=== PATIENT | female | born 1995 | race Caucasian/White ===

== ENCOUNTER 2017-09-14 06:15 | Inpatient (IN) | payer MEDICAID ==
[2017-09-14] MEDS: LACTATED RINGERS 1,000 ML IV SCH ×2 (06:48→11:39)
[2017-09-14] MEDS ORDERED: METHYLERGONOVINE 0.2 MG/ML 1 ML AMP IM PRN (06:49)
[2017-09-14] MEDS ORDERED: LIDOCAINE 1% (PF) 10 MG/ML (30 ML SDV) SQ PRN (06:49)
[2017-09-14] MEDS ORDERED: OXYTOCIN 10 UNIT/ML 1 ML VIAL IM PRN (06:49)
[2017-09-14] MEDS ORDERED: CARBOPROST TROMETHAMINE 250 MCG/ML 1 ML AMP IM PRN (06:49)
[2017-09-14] MEDS ORDERED: TERBUTALINE 1 MG/ML VIAL SQ PRN (06:49)
[2017-09-14] MEDS ORDERED: OXYTOCIN 20 UNITS/1000 ML NS 1,000 ML IV SCH (07:00)
[2017-09-14 07:07] LABS: Basophils % (A) 1 %; CH 28.5; CHCM 32.6; Eosinophils # (A) 0.1 k/uL (0-0.7); Eosinophils % (A) 2 %; HDW 3.29; HGB 10.4 gm/dL (11.4-16.0); Hypochromasia Slight; Luc # (Auto) 0.14; Luc % (Auto) 2; Lymphocytes # (A) 1.1 k/uL (1.0-4.8); Lymphocytes % (A) 19 %; MCH 29.3 pg (25.0-35.0); MCHC 33.3 g/dL (31.0-37.0); Mean Platelet Volume 9.6; Monocytes # (A) 0.5 k/uL (0-1.0); Monocytes % (A) 9 %; Neutrophils # (A) 4.1 k/uL (1.3-7.7); Neutrophils % (A) 68 %; RBC 3.53 m/uL (3.80-5.40); RDW 14.9 % (11.5-15.5); WBC 6.1 k/uL (3.8-10.6); WBC (Perox) 6.63
[2017-09-14 07:24] VITALS: BMI 34.2
--- NOTE | 2017-09-14 07:36 | P.HPOB ---
History of Present Illness H&P Date: 09/14/17 This is a 22-year-old white female 1 para 0 EDC 09/16/2017 at 39-5/7 weeks' gestation. Patient presents with a favorable cervix for elective induction. Fetus is been active throughout the . She denies fluid leakage or vaginal bleeding. Past medical history is unremarkable. Past surgical history significant for tubes in the ears as a child. Current medications vitamins daily. ALLERGIES none known. Family history significant for diabetes in her grandmother. Social history patient is , she has never been a smoker, she is employed locally, she denies alcohol or drug use. history is significant for blood type A positive, rubella status immune. Pap smear, gonorrhea and chlamydia cultures, urine culture, HIV status , hepatitis B surface antigen, group B strep cultures all negative. One-hour Glucola 103. On exam this is a pleasant female, 5 foot 7 inches, 219 pounds, blood pressure 118/75, temperature 96.9. The general physical exam is within normal limits. The extremities reveal no edema. The chest is clear. The cervix is 3 cm dilated, 70% effaced, anterior, soft, vertex. Artificial amniorrhexis reveals clear fluid. heart rate is consistent with reactive NST. Impression: 39-5/7 weeks intrauterine , all signs reassuring, here for elective induction of labor. Plan: Close maternal and surveillance. Oxytocin per hospital protocol. Anticipate normal spontaneous vaginal delivery. Review of Systems Constitutional: Reports as per HPI Past Medical History Past Medical History: No Reported History History of Any Multi-Drug Resistant Organisms: None Reported Past Surgical History: Ear Surgery Additional Past Surgical History / Comment(s): tubes as a child Past Anesthesia/Blood Transfusion Reactions: No Reported Reaction Past Psychological History: No Psychological Hx Reported Smoking Status: Never smoker Past Alcohol Use History: Rare Past Drug Use History: None Reported Additional Drug Use History / Comment(s): no alcohol use during the - Past Family History Father Family Medical History: No Reported History Medications and Allergies Home Medications Medication Instructions Recorded Confirmed Type Pnv,Calcium 72/Iron/Folic Acid 1 tab PO DAILY 07/15/17 08/26/17 History [ Plus Tablet] Allergies Allergy/AdvReac Type Severity Reaction Status Date / Time No Known Allergies Allergy Verified 09/14/17 06:37 Exam - Vital Signs Vital signs: Intake and Output 09/13/17 09/14/17 09/14/17 22:59 06:59 14:59 Other: Weight 99.337 kg 99.337 kg Patient Weight 09/15/17 06:59 Weight 99.337 kg See dictation under HPI, please. Results Result Diagrams: 09/14/17 06:45 Abnormal Lab Results - Last 24 Hours (Table) 09/14/17 Range/Units 06:45 RBC 3.53 L (3.80-5.40) m/uL Hgb 10.4 L (11.4-16.0) gm/dL Hct 31.0 L (34.0-46.0) % Assessment and Plan Plan: Oxytocin per hospital protocol. Close maternal and surveillance. Anticipate normal spontaneous vaginal delivery. Time with Patient: Less than 30
[2017-09-14] MEDS ORDERED: BUTORPHANOL 1 MG/ML 1 ML VIAL IV PRN (09:18)
[2017-09-14] MEDS ORDERED: BUPIVACAINE (PF) 0.25% 25 ML, fentaNYL (PF) 200 MCG in SODIUM CHLORIDE 0.9% 71 ML EPIDURAL ONE (11:38)
[2017-09-14] MEDS ORDERED: ACETAMINOPHEN TAB 325 MG TAB PO PRN (14:00)
[2017-09-14] MEDS ORDERED: diphenhydrAMINE 25 MG CAP PO PRN (14:00)
[2017-09-14] MEDS ORDERED: diphenhydrAMINE ELIXIR 25 MG/10 ML CUP PO PRN (14:00)
[2017-09-14] MEDS ORDERED: LANOLIN CREAM 5 GM TUBE TOPICAL PRN (14:00)
[2017-09-14] MEDS ORDERED: diphenhydrAMINE 50 MG CAP PO PRN (14:00)
[2017-09-14] MEDS ORDERED: ZOLPIDEM 5 MG TAB PO PRN (14:00)
[2017-09-14] MEDS ORDERED: BENZOCAINE/MENTHOL SPRAY 1 GM/SPRAY AEROSOL TOPICAL PRN (14:00)
[2017-09-14] MEDS ORDERED: SIMETHICONE 80 MG CHEWABLE PO PRN (14:00)
[2017-09-14] MEDS ORDERED: HYDROCORTISONE 2.5% RECTAL CREAM 30 GM TUBE RECTAL PRN (14:00)
[2017-09-14] MEDS ORDERED: diphenhydrAMINE 50 MG/ML 1 ML VIAL IVP PRN ×2 (14:00)
[2017-09-14] MEDS ORDERED: Acetaminophen-Codeine 300-30mg TAB PO PRN (14:00)
[2017-09-14] MEDS ORDERED: WITCH HAZEL 1 EACH MED..PAD TOPICAL PRN (14:00)
--- NOTE | 2017-09-14 14:00 | P.PROBDLV ---
Vaginal Delivery Note - . Vaginal Delivery Note: This is a 22-year-old white female 1 para 0 EDC 09/16/2017 at 39-5/7 weeks' gestation. Patient presented this morning with favorable cervix for induction of labor. Blood type is A+, rubella status immune, group B strep cultures negative. Please see dictated H&P for details. Artificial amniorrhexis revealed clear fluid. Oxytocin was started and titrated per hospital protocol. Epidural was placed per her request. She became completely dilated at 1312 hrs. and began the second stage of labor at that time. Perineal body was prepped and draped in usual sterile fashion. Excellent maternal expulsive efforts were noted. Infant's head delivered occiput anterior and he restituted accordingly. There was no nuchal cord noted. The left or anterior shoulder was gently and easily delivered from underneath the pubic symphysis at which time the oropharynx, nasopharynx, and external nares are all bulb suctioned on the perineal body. Patient is officially delivered of a liveborn male infant at 1343 hours. Umbilical cord is doubly clamped and ligated, he is handed to waiting nurses for evaluation where scores of 8 and 9 at one and 5 minutes respectively are given. Placenta delivers spontaneously, it is inspected and noted to be intact with trivascular cord at 1344 hours. This time the perineal body was redraped. Inspection of cervix, vagina, perineum, periurethral and perirectal areas reveals a small second-degree midline perineal laceration. This was repaired in the usual fashion using 3-0 Vicryl suture for excellent reapproximation. Fundus is firm and in the midline , symmetric and 18 week size upon completion of delivery. Total estimated blood loss 250 mL's. Infant weighs 7 lbs. 11 oz. or 3490 g. The patient and her family are allowed to begin the bonding experience in the LDR. They're declining circumcision further son.
[2017-09-14] MEDS: IBUPROFEN 600 MG TAB PO PRN (18:23)
[2017-09-14] MEDS ORDERED: SENNOSIDES-DOCUSATE SODIUM 1 EACH TAB PO SCH (20:00)
[2017-09-14 20:44] VITALS: RESP 16
[2017-09-15] MEDS: IBUPROFEN 600 MG TAB PO PRN ×2 (01:11→09:19)
--- NOTE | 2017-09-15 08:07 | P.DS ---
Providers Date of admission: 09/14/17 06:24 Expected date of discharge: 09/15/17 Attending physician: Cyndy Jamison Primary care physician: Stated None Hospital Course: This is a 22-year-old white female 1 para 0 EDC 09/16/2017 at 39-5/7 weeks' gestation. Patient presented for induction with favorable cervix, unremarkable, group B strep cultures negative, blood type B positive, rubella status immune. Please see my dictated history and physical for details. She was admitted, artificial amniorrhexis revealed clear fluid, oxytocin was started and titrated per hospital protocol. Epidural was placed per her request. She went on to deliver a liveborn male infant with scores of 8 and 9 at one and 5 minutes respectively. There was an estimated blood loss recorded of 250 mL, a small second-degree perineal laceration easily repaired. Infant weighed 7 lbs. 11 oz. or 3490 g. Please see my dictated delivery note for details. This morning the patient is doing well. She is voiding, ambulating, and passing flatus without difficulty. Vital signs are stable and she is afebrile. Fundus is firm and in the midline, symmetric and 18 week size. Extremities are negative for edema. Breast-feeding is going well. I have given her prescription for a double electric breast pump. She is declining circumcision for her son. Patient is being discharged home today in very good condition. She will follow- up with me in the office in 6 weeks. I have reminded her no intercourse, tampons or douching. She will use [id number] ibuprofen products, Motrin, 200 mg pills, 3 every 6 hours as needed. I have asked her to call me with any fevers shakes or chills, foul smelling or copious lochia, with the passage of large blood clots, with any pain not alleviated by ibuprofen, or indeed with any concerns. will follow-up with meal cook as recommended. We have briefly discussed options for contraception and we will discuss this further in the office the 6 week visit. Patient Condition at Discharge: Good Plan - Discharge Summary New Discharge Prescriptions: No Action Pnv,Calcium 72/Iron/Folic Acid [ Plus Tablet] 1 tab PO DAILY Discharge Medication List Pnv,Calcium 72/Iron/Folic Acid [ Plus Tablet] 1 tab PO DAILY 07/15/17 [ History] Discharge Disposition: HOME SELF-CARE
[2017-09-15 09:37] VITALS: BP 116/76; PULSE 86; TEMP 97.9
== END 2017-09-15 14:20 | disposition home or self-care (01) | DRG 775 ==
LOC: 4FBP 06:24
PROVIDERS: ADMIT Obstetrics & Gynecology; ATTEND Obstetrics & Gynecology
PROC: 10E0XZZ Delivery of Products of Conception, External Approach (ICD-10-PCS; principal; 2017-09-14)
PROC: 3E033VJ Introduction of Other Hormone into Peripheral Vein, Percutaneous Approach (ICD-10-PCS; principal; 2017-09-14)
PROC: 00HU33Z Insertion of Infusion Device into Spinal Canal, Percutaneous Approach (ICD-10-PCS; principal; 2017-09-14)
PROC: 0KQM0ZZ Repair Perineum Muscle, Open Approach (ICD-10-PCS; principal; 2017-09-14)
PROC: 3E0R3BZ Introduction of Anesthetic Agent into Spinal Canal, Percutaneous Approach (ICD-10-PCS; principal; 2017-09-14)
PROC: 10907ZC Drainage of Amniotic Fluid, Therapeutic from Products of Conception, Via Natural or Artificial Opening (ICD-10-PCS; principal; 2017-09-14)
DX: O70.1 Second degree perineal laceration during delivery (principal); Z37.0 Single live birth; Z3A.39 39 weeks gestation of pregnancy
CPT/HCPCS: 85025; 88307

== ENCOUNTER → 2018-08-25 | Outpatient (CLI) | payer OTHER ==
--- NOTE | 2018-08-25 13:56 | XR ---
Right hip HISTORY: Pain in right inguinal region 2 views of the right hip, no comparisons Bone mineralization, joint spaces and alignment are maintained IMPRESSION: Normal right hip.
== END ==
LOC: RADXRMAIN 13:27
PROVIDERS: ATTEND Emergency Medicine
DX: S73.101A Unspecified sprain of right hip, initial encounter (principal)
CPT/HCPCS: 73502

== ENCOUNTER 2019-06-06 08:14 | Outpatient (CLI) | payer OTHER ==
[2019-06-06 08:52] VITALS: BP 107/70; PULSE 102; RESP 16; TEMP 98.2
--- NOTE | 2019-06-21 15:46 | P.MSEPDOC ---
Presenting Problems - Arrival Data Date of Arrival on Unit: 06/06/19 Time of Arrival on Unit: 08:30 Mode of Transport: Ambulatory - Complaint OB-Reason for Admission/Chief Complaint: Rule Out SROM Comment: pt reports possible leaking of fluid around 0645 this morning Medical History - Information : 2 Para: 1 Term: 1 : 0 Abortions: Spontaneous or Elective: 0 Number of Living Children: 1 - Gestational Age Gestational Age by KEY (wks/days): 32 Weeks and 0 Days - History Complications: Multiple Review of Systems - Review of Systems Constitutional: No problems Breast: No problems ENT: No problems Cardiovascular: No problems Respiratory: No problems Gastrointestinal: No problems Genitourinary: No problems Musculoskeletal: No problems Neurological: No problems Skin: No problems Vital Signs - Temperature Temperature: 98.2 F Temperature Source: Temporal Artery Scan - Pulse Pulse Oximetery Pulse Rate: 102 Pulse Assessment Method: Pulse Oximetry - Respirations Respiratory Rate: 16 Oxygen Delivery Method: Room Air - Blood Pressure Right Arm Blood Pressure: 107/70 Blood Pressure Mean: 82 Blood Pressure Source: Automatic Cuff Medical Screen Scoring (Post) - Cervical Exam Dilation: Exam Deferred - Uterine Contractions Frequency: N/A Duration: N/A Intensity: N/A - Maternal Vital Signs Maternal Temperature: N/A Maternal Blood Pressure: N/A Signs of Preeclampsia: N/A Maternal Respirations: N/A - Maternal Trauma Maternal Trauma: N/A - Assessment - Baby A Heart Rate: 150 Heart Rate - NICHD Category: Category I (Normal) = 0 NST: Reactive Position: N/A - Assessment - Baby B Baseline - FHR: 135 Heart Rate - NICHD Category: Category I (Normal) = 0 NST: Reactive Position: N/A Station: N/A - Total Score Total Score - Baby A: 0 Total Score - Baby B: 0 Total Score - Baby C: 0 - Post Treatment Level of Risk Post Treatment Level of Risk - Baby A: Low (0-5) Post Treatment Level of Risk - Baby B: Low (0-5) Post Treatment Level of Risk - Baby C: Low (0-5) Physician Notification (Post) - Physician Notified Physician Notified Date: 06/06/19 Physician Notified Time: 09:20 Physician/Practitioner Notified:: jerson Spoke With: niver New Order Received: Yes - Notification Comment Comment: reported pt visit, negative amnisure, reactive twin nst, vital sign wnl, no contractions or pain Disposition - Disposition OB Disposition: Discharge to home Discharge Date: 06/06/19 Discharge Time: 09:29 I agree with the RN Medical Screening Exam: Yes Risk & Benefit of care provided described in d/c instruction: Yes Diagnosis: FALSE LABOR BEFORE 37 COMPLETED WEEKS OF GEST, THIRD TRI
== END 2019-06-06 09:29 | disposition home or self-care (01) ==
LOC: FBPOP 08:14
PROVIDERS: ATTEND Obstetrics & Gynecology
DX: O47.03 False labor before 37 completed weeks of gestation, third trimester (principal); Z3A.32 32 weeks gestation of pregnancy
CPT/HCPCS: 59025; 84112; 99213

== ENCOUNTER 2019-06-29 20:30 | Outpatient (CLI) | payer OTHER ==
[2019-06-29 22:01] VITALS: RESP 16; TEMP 97.2
[2019-06-29 22:36] VITALS: BP 124/74; PULSE 93
--- NOTE | 2019-07-01 10:50 | P.MSEPDOC ---
Presenting Problems - Arrival Data Date of Arrival on Unit: 06/29/19 Time of Arrival on Unit: 20:30 Mode of Transport: Ambulatory - Complaint OB-Reason for Admission/Chief Complaint: Possible Onset of Labor Comment: Comment: Patient arrives to triage and states she has been feeling "pressure and pain". for a few days but it has increased today. Patient also states she has been leaking. fluid but thinks it may be urine. Dr. Jamison aware that patient was coming. Medical History - Information : 2 Para: 1 Term: 1 : 0 Abortions: Spontaneous or Elective: 0 Number of Living Children: 1 - Gestational Age Gestational Age by KEY (wks/days): 35 Weeks and 2 Days - History Complications: Multiple Review of Systems - Review of Systems Constitutional: No problems Breast: No problems ENT: No problems Cardiovascular: No problems Respiratory: No problems Gastrointestinal: No problems Genitourinary: No problems Musculoskeletal: No problems Neurological: No problems Skin: No problems Vital Signs - Temperature Temperature: 97.2 F Temperature Source: Temporal Artery Scan - Pulse Right Brachial Pulse Rate: 93 Pulse Assessment Method: Automatic Cuff - Respirations Respiratory Rate: 16 Oxygen Delivery Method: Room Air O2 Sat by Pulse Oximetry: 100 - Blood Pressure Right Arm Blood Pressure: 124/74 Blood Pressure Mean: 90 Blood Pressure Source: Automatic Cuff Medical Screen Scoring (Pre) - Cervical Exam Dilation: 4-7 cm = 2 Effacement: More than 50% = 2 Membranes: Intact - Uterine Contractions Frequency: N/A Duration: N/A - Maternal Vital Signs Maternal Temperature: N/A Maternal Blood Pressure: N/A Signs of Preeclampsia: N/A - Maternal Trauma Maternal Trauma: N/A - Assessment - Baby A Baseline FHR: 135 Heart Rate - NICHD Category: Category I (Normal) = 0 NST: Reactive - Assessment - Baby B Baseline FHR: 140 Heart Rate - NICHD Category: Category I (Normal) = 0 NST: Reactive - Total Score - Baby A Total Score - Baby A: 4 - Total Score - Baby B Total Score - Baby B: 4 - Total Score - Baby C Total Score - Baby C: 4 - Level of Risk - Baby A Level of Risk - Baby A: Low (0-5) - Level of Risk - Baby B Level of Risk - Baby B: Low (0-5) - Level of Risk - Baby C Level of Risk - Baby C: Low (0-5) Physician Notification (Pre) - Physician Notified Physician Notified Date: 06/29/19 Physician Notified Time: 21:15 Physician/Practitioner Notifed:: Dr. Jamison Spoke With: Dr. Jamison New Order Received: Yes - Notification Comment Comment: Comment: Corin Moss, RN spoke with Dr. Jamison on the telephone. Cervical exam of. 4/80/-2, Reactive NST for both baby A and baby B, and no contractions noted per TOCO or palpation relayed. Dr. Jamison states if patient has not made any cervical change after. one hour, she may be discharged with follow up appointment and discharge instructions.Patient verbalizes understanding. Re-check after one hour remains the same. Patient discharged home. Disposition - Disposition OB Disposition: Physician follow up in office, Discharge to home Discharge Date: 06/29/19 Discharge Time: 22:30 I agree with the RN Medical Screening Exam: Yes Risk & Benefit of care provided described in d/c instruction: Yes Diagnosis: FALSE LABOR BEFORE 37 COMPLETED WEEKS OF GEST, THIRD TRI
== END 2019-06-29 22:30 | disposition home or self-care (01) ==
LOC: FBPOP 20:30
PROVIDERS: ATTEND Obstetrics & Gynecology
DX: O47.03 False labor before 37 completed weeks of gestation, third trimester (principal); Z3A.35 35 weeks gestation of pregnancy
CPT/HCPCS: 59025; 84112; 99213

== ENCOUNTER 2019-07-12 06:00 | Inpatient (IN) | payer OTHER ==
[2019-07-12] MEDS ORDERED: CARBOPROST TROMETHAMINE 250 MCG/ML 1 ML AMP IM PRN (07:08)
[2019-07-12] MEDS ORDERED: OXYTOCIN 10 UNIT/ML 1 ML VIAL IM PRN (07:08)
[2019-07-12] MEDS ORDERED: LIDOCAINE 0.5% (PF) 5 MG/ML (50 ML SDV) SQ PRN (07:08)
[2019-07-12] MEDS ORDERED: METHYLERGONOVINE 0.2 MG/ML 1 ML AMP IM PRN (07:08)
[2019-07-12] MEDS ORDERED: TERBUTALINE 1 MG/ML VIAL SQ PRN (07:08)
[2019-07-12 07:19] VITALS: BMI 34.9
--- NOTE | 2019-07-12 07:27 | P.HPOB ---
History of Present Illness H&P Date: 07/12/19 This is a 24-year-old white female 2 para 1001 EDC 08/01/2019 at 37 and one sevenths weeks' gestation. Patient presents today with advanced cervical dilatation, known dye amniotic twins. Cervix was 6-7 cm in the office yesterday, 90% effaced, -1 station, vertex presentation. Baby's weights have been concordant. Both have been active throughout the . Past medical history is unremarkable. Past surgical history eustachian tubes in the ears as a child. Current medications vitamins daily. ALLERGIES none known. Family history significant for diabetes. Reproductive history significant for vaginal delivery 2017, 7 lbs. 11 oz. male. Social history patient is , she is never been a smoker, she denies alcohol or drug use. history is significant for blood type A+, rubella status nonimmune. VDRL testing, urine culture, hepatitis B surface antigen, gonorrhea and chlamydia cultures, group B strep cultures all negative.. On exam this is a pleasant white female, 5 foot 7 inches, 230 pounds, vital signs are stable and she is afebrile. Chest is clear in all szymanski. Extremities reveal trace edema. Vaginal exam reveals vertex presentation, 67 cm dilation, 90% effaced, -1 station. Artificial amniorrhexis reveals clear fluid. Internal scalp lead is applied. heart rate is consistent with reactive NST both a and B. Twin B is breech presentation. Impression: 37 and one sevenths weeks intrauterine , diamniotic twins, vertex breech. Advanced cervical dilatation. Rubella nonimmune. Plan: I discussed with the patient and her in detail delivery mode. They are clean to vaginal delivery. This will be done in the back under double setup with anesthesia and watch electrician present. Epidural has been requested and will be placed shortly. Continue close maternal and surveillance. Patient is aware that for baby B is breech presentation persists after delivery of a, then one attempt at version will be made. If it is unsuccessful, baby B was delivered breech. She understands the use of piper forceps as needed and the risks to baby B. She is declining option for , preferring "natural delivery". All risks and benefits have been discussed in detail and I believe the patient and her understands our discussion without further Review of Systems Constitutional: Reports as per HPI Past Medical History Past Medical History: No Reported History History of Any Multi-Drug Resistant Organisms: None Reported Past Surgical History: Ear Surgery Additional Past Surgical History / Comment(s): tubes as a child Past Anesthesia/Blood Transfusion Reactions: No Reported Reaction Past Psychological History: No Psychological Hx Reported Smoking Status: Never smoker Past Alcohol Use History: Rare Past Drug Use History: None Reported Additional Drug Use History / Comment(s): no alcohol use during the - Past Family History Father Family Medical History: No Reported History Medications and Allergies Home Medications Medication Instructions Recorded Confirmed Type Pnv,Calcium 72/Iron/Folic Acid 1 tab PO DAILY 07/15/17 06/29/19 History [ Plus Tablet] Acetaminophen [Tylenol Extra 1 - 2 tab PO DAILY PRN 06/29/19 06/29/19 History Strength] Ranitidine HCl [Zantac] 1 tab PO DAILY 06/29/19 06/29/19 History Allergies Allergy/AdvReac Type Severity Reaction Status Date / Time No Known Allergies Allergy Verified 06/29/19 20:45 Exam Vital Signs Pulse Resp BP Pulse Ox 07/12/19 07:06 109 H 18 129/83 98 Intake and Output 07/11/19 07/12/19 07/12/19 22:59 06:59 14:59 Other: Weight 101.151 kg See dictation under HPI please Assessment and Plan Assessment: 37 and one sevenths weeks diamniotic twins, vertex breech presentations. Advanced cervical dilatation, here for labor. Plan: Continue close maternal and surveillance. Plan is for delivery under double setup in the back, in the section room. Anesthesia and watch electrician will be available, along with ultrasound monitoring for second twin. Plan is for vaginal delivery of the first twin, attempted version 1 of second twin, and then potential for vaginal breech delivery and second twin. All risks and benefits have been discussed in detail. Piper forceps will be available. Epidural has been requested and anesthesia is aware for administration. Time with Patient: Greater than 30
[2019-07-12 07:34] LABS: Basophils % (A) 1 %; Eosinophils # (A) 0.2 k/uL (0-0.7); Eosinophils % (A) 2 %; HCT 29.9 % (34.0-46.0); Hypochromasia Slight; Lymphocytes # (A) 1.3 k/uL (1.0-4.8); Lymphocytes % (A) 20 %; MCH 28.4 pg (25.0-35.0); MCHC 33.6 g/dL (31.0-37.0); MCV 84.5 fL (80.0-100.0); Mean Platelet Volume 9.5; Monocytes # (A) 0.4 k/uL (0-1.0); Monocytes % (A) 6 %; Neutrophils # (A) 4.2 k/uL (1.3-7.7); Neutrophils % (A) 68 %; Platelet Count 216 k/uL (150-450); Poikilocytosis Slight; RBC 3.53 m/uL (3.80-5.40); RDW 15.7 % (11.5-15.5); WBC 6.2 k/uL (3.8-10.6)
[2019-07-12] MEDS ORDERED: SODIUM CHLORIDE 0.9% 100 ML BAG ONE (07:35)
[2019-07-12] MEDS ORDERED: ROPIVACAINE 5MG/ML 20ML VIAL ONE (07:35)
[2019-07-12] MEDS ORDERED: fentaNYL (PF) 50 MCG/ML 5 ML AMP ONE (07:35)
[2019-07-12] MEDS: LACTATED RINGERS 1,000 ML IV SCH ×2 (08:26→08:29)
[2019-07-12] MEDS ORDERED: OXYTOCIN 30 UNITS/500 ML NS 30 UNIT in SALINE 1 500ML.BAG IV SCH (08:30)
[2019-07-12] MEDS ORDERED: HYDROCORTISONE 2.5% RECTAL CREAM 30 GM TUBE RECTAL PRN (10:17)
[2019-07-12] MEDS ORDERED: ZOLPIDEM 5 MG TAB PO PRN (10:17)
[2019-07-12] MEDS ORDERED: MEASLES-MUMPS-RUBELLA VACC/PF 12,500 UNIT/0.5 ML VIAL SQ ONE (10:17)
[2019-07-12] MEDS ORDERED: diphenhydrAMINE 25 MG CAP PO PRN (10:17)
[2019-07-12] MEDS ORDERED: diphenhydrAMINE 50 MG/ML 1 ML VIAL IVP PRN ×2 (10:17)
[2019-07-12] MEDS ORDERED: LANOLIN CREAM 5 GM TUBE TOPICAL PRN (10:17)
[2019-07-12] MEDS ORDERED: diphenhydrAMINE 50 MG CAP PO PRN (10:17)
[2019-07-12] MEDS ORDERED: BENZOCAINE/MENTHOL SPRAY 1 GM/SPRAY AEROSOL TOPICAL PRN (10:17)
[2019-07-12] MEDS ORDERED: WITCH HAZEL 1 EACH MED..PAD TOPICAL PRN (10:17)
[2019-07-12] MEDS ORDERED: SIMETHICONE 80 MG CHEWABLE PO PRN (10:17)
--- NOTE | 2019-07-12 10:17 | P.PROBDLV ---
Vaginal Delivery Note - . Vaginal Delivery Note: This is a 24-year-old white female 2 per 1001 EDC 08/01/2019 at 37 and one sevenths weeks' gestation. Patient has a known twin gestation, and was in the office yesterday noted to be 6 cm dilated, 90% effaced, -1 station. Vertex presentation of the presenting twin was noted, breech presentation of the second twin. is essentially unremarkable, group B strep cultures negative, blood type A+, rubella status nonimmune. Please see dictated history and physical for details. On admission patient was 7-8 cm dilated with vertex presentation. Artificial amniorrhexis at 0706 hrs. revealed clear fluid. Oxytocin was started and titrated per hospital protocol, internal scalp was placed on the presenting twin. At all times heart tones were reassuring. Epidural was placed per her request. Patient continued to labor and was judged to be completely dilated at 0940 hours. At this time she was taken back to the operating room for a double setup delivery. Anesthesia staff present, diet supervisor present, personnel and payroll technician as well. Patient was positioned on the delivery table and the perineal body was prepped and draped in usual sterile fashion. With excellent maternal expulsive efforts infant's head delivered occiput anterior. There was no nuchal cord noted. Patient swiftly deliver the first baby at 0951 hours. Umbilical cord was doubly clamped and ligated, he was handed to waiting pediatricians for evaluation where scores of 9 and 9 at one and 5 minutes respectively were given. He weighed 5 lbs. 15 oz. or 2680 g. Placenta delivered spontaneously at 0953 hours, it was sent to pathology for evaluation. During the delivery of the male fetus, the female fetus was monitored per personnel and payroll technician. heart rate remained in the 140s to 150s baseline. The patient had a strong urge to push and therefore was encouraged to do so. The second twin presented in a double footling breech, in the amniotic sac. The patient was allowed to push the sac into the vagina when both feet and both legs delivered. At the level of the hips of the second twin, spontaneous amniorrhexis occurred. Clear fluid was noted. The hips were rotated to sacrum anterior. The trunk was delivered easily, the upper extremities were delivered by 180 over rotation and flexion at the elbows. My right finger was used and the fetus's mouth and the head was delivered in a flexed position. Official time of delivery 0954 hours. There was a nuchal cord 3 that was reduced. Placenta delivered spontaneously at the same time. The umbilical cord was doubly clamped and ligated, she was handed to waiting diet supervisor for evaluatio n where scores of 8 and 9 at one and 5 minutes respectively were given. The female infant weighed 4 lbs. 13 oz. or 2180 g. The uterus is then massaged. Careful inspection of the cervix, vagina, perineum, periurethral, and perirectal areas revealed a very small first-degree midline perineal laceration. This was repaired in the usual fashion using 3-0 Vicryl suture with a single [id number]. Estimated blood loss totally 300 mL's. Fundus is firm and in the midline, symmetric and 18 week size upon completion of delivery. Patient and her family were allowed to begin the bonding experience in the LDR. Patient and her are declining option for circumcision further son.
[2019-07-12] MEDS ORDERED: OXYTOCIN 20 UNITS/1000 ML NS 1,000 ML IV SCH (10:30)
--- NOTE | 2019-07-12 10:35 | US ---
EXAMINATION TYPE: US OB limited DATE OF EXAM: 07/12/2019 COMPARISON: NONE CLINICAL HISTORY: Twin breech . Twin B position check during vaginal delivery EXAM PERFORMED: Transabdominal (TA) GESTATIONAL AGE / DATING No growth performed on today?s study per ordering physician SURVEY Baby B PRESENTATION: Breech HEART RATE: 145 bpm RHYTHM: Normal IMPRESSION: The fetus identified is twin B was evaluated and is in the breech presentation.
[2019-07-12] MEDS: IBUPROFEN 600 MG TAB PO PRN ×2 (11:39→19:40)
[2019-07-12] MEDS: SENNOSIDES-DOCUSATE SODIUM 1 EACH TAB PO SCH (19:41)
[2019-07-12] MEDS: ACETAMINOPHEN TAB 325 MG TAB PO PRN (22:18)
[2019-07-13] MEDS: IBUPROFEN 600 MG TAB PO PRN ×4 (03:21→23:33)
[2019-07-13 07:00] LABS: Basophils % (A) 0 %; Eosinophils # (A) 0.2 k/uL (0-0.7); Eosinophils % (A) 3 %; HCT 25.9 % (34.0-46.0); Hypochromasia Slight; Lymphocytes # (A) 1.1 k/uL (1.0-4.8); Lymphocytes % (A) 18 %; MCH 26.7 pg (25.0-35.0); MCHC 31.2 g/dL (31.0-37.0); MCV 85.5 fL (80.0-100.0); Monocytes # (A) 0.3 k/uL (0-1.0); Monocytes % (A) 6 %; Neutrophils % (A) 70 %; Platelet Count 143 k/uL (150-450); Poikilocytosis Slight; RBC 3.03 m/uL (3.80-5.40); RDW 15.7 % (11.5-15.5); WBC 5.8 k/uL (3.8-10.6)
[2019-07-13 07:07] LABS: HGB 8.1 gm/dL (11.4-16.0)
--- NOTE | 2019-07-13 07:49 | P.PN ---
Subjective Progress Note Date: 07/13/19 Principal diagnosis: day #1 Slept well. Minimal to moderate lochia rubra. Breast-feeding without issue. No complaints Objective - Vital Signs Vital signs: Vital Signs Temp 97.9 F 07/13/19 00:00 Pulse 76 07/13/19 00:00 Resp 16 07/13/19 00:00 BP 110/73 07/13/19 00:00 Pulse Ox 100 07/12/19 20:00 Intake & Output 07/12/19 07/13/19 07/13/19 18:59 06:59 18:59 Output Total 900 Balance -900 Weight 101.151 kg Output: Estimated Blood Loss 900 Other: # Voids 1 - Constitutional General appearance: Present: average body habitus, cooperative - EENT Eyes: Present: PERRLA ENT: Present: hearing grossly normal - Neck Neck: Present: normal ROM Thyroid: bilateral: normal size - Respiratory Respiratory: bilateral: CTA - Cardiovascular Rhythm: regular - Gastrointestinal Gastrointestinal Comment(s): Fundus firm, midline, symmetric, 18 week size. General gastrointestinal: Present: normal bowel sounds - Neurologic Neurologic: Present: CNII-XII intact - Musculoskeletal Musculoskeletal: Present: gait normal, strength equal bilaterally - Psychiatric Psychiatric: Present: A&O x's 3, appropriate affect, intact judgment & insight - Labs CBC & Chem 7: 07/13/19 06:44 Labs: Abnormal Lab Results - Last 24 Hours (Table) 07/13/19 Range/Units 06:44 RBC 3.03 L (3.80-5.40) m/uL Hgb 8.1 L D (11.4-16.0) gm/dL Hct 25.9 L (34.0-46.0) % RDW 15.7 H (11.5-15.5) % Plt Count 143 L (150-450) k/uL Assessment and Plan Assessment: Doing well day #1. Plan: Continue care. Preschool Teacher'S Assistant is electing to monitor the infant's for an additional period of time, therefore discharge will likely be tomorrow. Patient is declining circumcision for her twin son. Time with Patient: Less than 30
[2019-07-13] MEDS: SENNOSIDES-DOCUSATE SODIUM 1 EACH TAB PO SCH ×2 (08:00→22:37)
[2019-07-13] MEDS: ACETAMINOPHEN TAB 325 MG TAB PO PRN (12:34)
[2019-07-14 00:10] VITALS: RESP 16
[2019-07-14] MEDS: IBUPROFEN 600 MG TAB PO PRN (07:08)
--- NOTE | 2019-07-14 08:26 | P.DS ---
Providers Date of admission: 07/12/19 06:40 Expected date of discharge: 07/14/19 Attending physician: Cyndy Jamison Primary care physician: Stated None Hospital Course: This is a 24 rolled white female 2 para 1001 EDC 08/01/2019 at 37 and one sevenths weeks' gestation. Patient presented with known diamniotic twin gestation, with advanced cervical dilatation noted in the office the day before. Patient was noted to be 6-7 cm dilated in the office with vertex presentation, decision was made to proceed with delivery. is remarkable for rubella status nonimmune, blood type A+, group B strep cultures negative. Please see my dictated history and physical for details. Patient was admitted, artificial amniorrhexis revealed clear fluid. She requested and received an epidural. Oxytocin augmentation was started, only low doses were needed. She was taken to the back for delivery, under double setup with anesthesia and pediatricians present. She gave to a liveborn baby A, male infant, vertex, scores 9 and 9. He weighed 5 lbs. 15 oz. or 2680 g. She delivered the second baby girl, breech presentation, with a nuchal cord 3. Her daughter weighed 4 lbs. 13 oz. or 2180 g. She had scores of 8 and 9 at one and 5 minutes respectively. Total estimated blood loss 300 mL's. A small first-degree perineal laceration was easily repaired. Please see my dictated delivery note for details. This morning the patient and her babies are both doing very well. She is declining circumcision for her son. The patient is voiding, ambulating, passing flatus without difficulty. Vital signs are stable and she has remained afebrile. Breasts are not engorged. Breast-feeding is going well. Fundus is firm, midline, symmetric, 18 week size. Extremities are negative for edema. Patient is judged to be in very good condition for discharge home. She will follow-up in the office with me in 6 weeks. I have reminded her no intercourse, tampons or douching. She will use [id number] Advil or Aleve, or Motrin as needed for pain. She will continue taking her vitamin daily. She will call with any breast issues, with any fevers shakes or chills, with any foul smelling or copious lochia, with any pain not alleviated by [id number] products, or indeed with any concerns. We have briefly discussed options for contraception and we will discuss this further in the office. Patient Condition at Discharge: Good Plan - Discharge Summary Discharge Rx Participant: No New Discharge Prescriptions: No Action Pnv,Calcium 72/Iron/Folic Acid [ Plus Tablet] 1 tab PO DAILY Ranitidine HCl [Zantac] 1 tab PO DAILY Acetaminophen [Tylenol Extra Strength] 1 - 2 tab PO DAILY PRN PRN Reason: Pain Discharge Medication List Pnv,Calcium 72/Iron/Folic Acid [ Plus Tablet] 1 tab PO DAILY 07/15/17 [History] Acetaminophen [Tylenol Extra Strength] 1 - 2 tab PO DAILY PRN 06/29/19 [History] Ranitidine HCl [Zantac] 1 tab PO DAILY 06/29/19 [History] Follow up Appointment(s)/Referral(s): Cyndy Jamison MD [STAFF PHYSICIAN] - 6 Weeks Discharge Disposition: HOME SELF-CARE
[2019-07-14] MEDS: SENNOSIDES-DOCUSATE SODIUM 1 EACH TAB PO SCH (09:56)
[2019-07-14 10:04] VITALS: BP 108/68; PULSE 73; TEMP 97.3
== END 2019-07-14 12:00 | disposition home or self-care (01) | DRG 807 ==
LOC: 4FBP 06:40
PROVIDERS: ADMIT Obstetrics & Gynecology; ATTEND Obstetrics & Gynecology
PROC: 10E0XZZ Delivery of Products of Conception, External Approach (ICD-10-PCS; principal; 2019-07-12)
PROC: 10907ZC Drainage of Amniotic Fluid, Therapeutic from Products of Conception, Via Natural or Artificial Opening (ICD-10-PCS; 2019-07-12)
PROC: 0HQ9XZZ Repair Perineum Skin, External Approach (ICD-10-PCS; 2019-07-12)
PROC: 00HU33Z Insertion of Infusion Device into Spinal Canal, Percutaneous Approach (ICD-10-PCS; 2019-07-12)
PROC: 3E0R3BZ Introduction of Anesthetic Agent into Spinal Canal, Percutaneous Approach (ICD-10-PCS; 2019-07-12)
DX: O30.043 Twin pregnancy, dichorionic/diamniotic, third trimester (principal); Z37.2 Twins, both liveborn; O32.8XX2 Maternal care for other malpresentation of fetus, fetus 2; O69.81X2 Labor and delivery complicated by cord around neck, without compression, fetus 2; O70.0 First degree perineal laceration during delivery; Z3A.37 37 weeks gestation of pregnancy; Z83.3 Family history of diabetes mellitus
CPT/HCPCS: 76815; 85025; 86850; 86870; 86880; 86900; 86901; 86902; 88307; 90471; 90707

== ENCOUNTER 2020-12-12 18:51 | Inpatient (IN) | payer OTHER ==
[2020-12-12 19:54] LABS: Basophils # (A) 0.1 k/uL (0-0.2); Basophils % (A) 1 %; Eosinophils # (A) 0.2 k/uL (0-0.7); Eosinophils % (A) 2 %; HCT 42.4 % (34.0-46.0); Lymphocytes # (A) 0.8 k/uL (1.0-4.8); Lymphocytes % (A) 9 %; MCH 28.3 pg (25.0-35.0); MCHC 33.1 g/dL (31.0-37.0); MCV 85.6 fL (80.0-100.0); Mean Platelet Volume 9.1; Monocytes # (A) 0.3 k/uL (0-1.0); Monocytes % (A) 3 %; Neutrophils # (A) 7.2 k/uL (1.3-7.7); Neutrophils % (A) 84 %; Platelet Count 201 k/uL (150-450); RBC 4.96 m/uL (3.80-5.40); RDW 12.8 % (11.5-15.5); WBC 8.6 k/uL (3.8-10.6)
[2020-12-12 20:05] LABS: Albumin 4.5 g/dL (3.5-5.0); Calcium 9.6 mg/dL (8.4-10.2); Potassium 3.9 mmol/L (3.5-5.1); Total Bilirubin 1.1 mg/dL (0.2-1.3); Total Protein 7.7 g/dL (6.3-8.2)
[2020-12-12 20:49] LABS: Appearance,Urine Cloudy (Clear); Bilirubin,Urine Negative (Negative); Blood,Urine Negative (Negative); Color,Urine Yellow; Glucose,Urine (UA) Negative (Negative); Ketones,Urine Negative (Negative); Leukocyte Esterase,Urine Moderate (Negative); Mucus,Urine Few /hpf; Nitrite,Urine Negative (Negative); PH, Urine 5.5 (5.0-8.0); Protein,Urine Trace (Negative); RBC,Urine 2 /hpf (0-5); Specific Gravity,Urine 1.017 (1.001-1.035); Squamous Epithelial Cell,Urine 8 /hpf (0-4); Urobilinogen,Urine <2.0 mg/dL (<2.0); WBC,Urine 1 /hpf (0-5)
--- NOTE | 2020-12-12 21:13 | ED ---
Abdominal Pain HPI - General Chief Complaint: Abdominal Pain Stated Complaint: Abd pain Time Seen by Provider: 12/12/20 19:05 Source: patient Mode of arrival: ambulatory Limitations: no limitations - History of Present Illness Initial Comments: Patient is a 25-year-old previously healthy female who presents to the emergency department with reported epigastric abdominal pain. States that it started earlier this evening. She had eaten pizza and breadsticks for dinner when the pain came on. Reports that there is no radiation. Had some nausea without vomiting. Went to [facility] who gave her a dose of Toradol. States that she had significant reduction in the pain. Denies any chest pain or shortness of breath. No changes in her bowel or bladder habits. No previous abdominal surgeries. No alcohol use. No other alleviating, precipitating or modifying factors - Related Data Home Medications Medication Instructions Recorded Confirmed medroxyPROGESTERone [Depo-Provera] 150 mg SQ Q84D 12/12/20 12/12/20 Previous Rx's Medication Instructions Recorded oxyCODONE HCL [OxyIR] 5 mg PO Q6H PRN 3 Days #6 tab 12/14/20 Allergies Allergy/AdvReac Type Severity Reaction Status Date / Time No Known Allergies Allergy Verified 12/12/20 22:53 Review of Systems ROS Statement: Those systems with pertinent positive or pertinent negative responses have been documented in the HPI. ROS Other: All systems not noted in ROS Statement are negative. Past Medical History Past Medical History: No Reported History History of Any Multi-Drug Resistant Organisms: None Reported Past Surgical History: Ear Surgery Additional Past Surgical History / Comment(s): tubes as a child Past Anesthesia/Blood Transfusion Reactions: No Reported Reaction Past Psychological History: No Psychological Hx Reported Smoking Status: Never smoker Past Alcohol Use History: Rare Past Drug Use History: None Reported - Past Family History Father Family Medical History: No Reported History General Exam Limitations: no limitations General appearance: alert, in no apparent distress Head exam: Present: atraumatic, normocephalic, normal inspection Eye exam: Present: normal appearance, PERRL, EOMI. Absent: scleral icterus, conjunctival injection, periorbital swelling ENT exam: Present: normal exam, mucous membranes moist Neck exam: Present: normal inspection. Absent: tenderness, meningismus, lymphadenopathy Respiratory exam: Present: normal lung sounds bilaterally. Absent: respiratory distress, wheezes, rales, rhonchi, stridor Cardiovascular Exam: Present: regular rate, normal rhythm, normal heart sounds. Absent: systolic murmur, diastolic murmur, rubs, gallop, clicks GI/Abdominal exam: Present: soft, tenderness (epigastric pain), normal bowel sounds. Absent: distended, guarding, rebound, rigid Extremities exam: Present: normal inspection, full ROM, normal capillary refill. Absent: tenderness, pedal edema, joint swelling, calf tenderness Back exam: Present: normal inspection Neurological exam: Present: alert, oriented X3, CN II-XII intact Psychiatric exam: Present: normal affect, normal mood Skin exam: Present: warm, dry, intact, normal color. Absent: rash Course Vital Signs 12/12/20 12/12/20 19:04 23:05 Temperature 98.2 F Pulse Rate 80 81 Respiratory 18 16 Rate Blood Pressure 117/84 121/78 O2 Sat by Pulse 100 99 Oximetry Medical Decision Making - Medical Decision Making Upon arrival patient is placed into room 19. A thorough history and physical exam was performed. IV is established. Laboratory studies are conducted an ultrasound is performed. Laboratory studies were reviewed and demonstrated an elevated AST and LT. Lipase is 1915. Ultrasound demonstrates that the patient has gallstones with one in the neck. Common bile duct is not entirely visualized. I discussed results with Dr. Andrew. Did recommend admission for possible choledocholithiasis and gallstone pancreatitis. Patient will be admitted to his service. She agreed to the treatment plan and is awaiting a bed - Lab Data Result diagrams: 12/14/20 04:12 12/14/20 04:12 Lab Results 12/12/20 12/12/20 12/12/20 Range/Units 19:45 19:45 19:45 WBC 8.6 (3.8-10.6) k/uL RBC 4.96 (3.80-5.40) m/uL Hgb 14.0 (11.4-16.0) gm/dL Hct 42.4 (34.0-46.0) % MCV 85.6 (80.0-100.0) fL MCH 28.3 (25.0-35.0) pg MCHC 33.1 (31.0-37.0) g/dL RDW 12.8 (11.5-15.5) % Plt Count 201 (150-450) k/uL MPV 9.1 Neutrophils % 84 % Lymphocytes % 9 % Monocytes % 3 % Eosinophils % 2 % Basophils % 1 % Neutrophils # 7.2 (1.3-7.7) k/uL Lymphocytes # 0.8 L (1.0-4.8) k/uL Monocytes # 0.3 (0-1.0) k/uL Eosinophils # 0.2 (0-0.7) k/uL Basophils # 0.1 (0-0.2) k/uL Sodium 138 (137-145) mmol/L Potassium 3.9 (3.5-5.1) mmol/L Chloride 104 (98-107) mmol/L Carbon Dioxide 24 (22-30) mmol/L Anion Gap 10 mmol/L BUN 11 (7-17) mg/dL Creatinine 1.01 (0.52-1.04) mg/dL Est GFR (CKD-EPI)AfAm 88 (>60 ml/min/1.73 sqM) Est GFR (CKD-EPI)NonAf 77 (>60 ml/min/1.73 sqM) Glucose 123 H (74-99) mg/dL Plasma Lactic Acid Jeff 0.8 (0.7-2.0) mmol/L Calcium 9.6 (8.4-10.2) mg/dL Total Bilirubin 1.1 (0.2-1.3) mg/dL AST 65 H (14-36) U/L ALT 39 H (4-34) U/L Alkaline Phosphatase 110 (38-126) U/L Total Protein 7.7 (6.3-8.2) g/dL Albumin 4.5 (3.5-5.0) g/dL Lipase 915 H (23-300) U/L Urine Color Urine Appearance (Clear) Urine pH (5.0-8.0) Ur Specific Weed (1.001-1.035) Urine Protein (Negative) Urine Glucose (UA) (Negative) Urine Ketones (Negative) Urine Blood (Negative) Urine Nitrite (Negative) Urine Bilirubin (Negative) Urine Urobilinogen (<2.0) mg/dL Ur Leukocyte Esterase (Negative) Urine RBC (0-5) /hpf Urine WBC (0-5) /hpf Ur Squamous Epith Cells (0-4) /hpf Urine Mucus (None) /hpf Urine HCG, Qual (Not Detectd) 12/12/20 12/12/20 Range/Units 20:34 20:34 WBC (3.8-10.6) k/uL RBC (3.80-5.40) m/uL Hgb (11.4-16.0) gm/dL Hct (34.0-46.0) % MCV (80.0-100.0) fL MCH (25.0-35.0) pg MCHC (31.0-37.0) g/dL RDW (11.5-15.5) % Plt Count (150-450) k/uL MPV Neutrophils % % Lymphocytes % % Monocytes % % Eosinophils % % Basophils % % Neutrophils # (1.3-7.7) k/uL Lymphocytes # (1.0-4.8) k/uL Monocytes # (0-1.0) k/uL Eosinophils # (0-0.7) k/uL Basophils # (0-0.2) k/uL Sodium (137-145) mmol/L Potassium (3.5-5.1) mmol/L Chloride (98-107) mmol/L Carbon Dioxide (22-30) mmol/L Anion Gap mmol/L BUN (7-17) mg/dL Creatinine (0.52-1.04) mg/dL Est GFR (CKD-EPI)AfAm (>60 ml/min/1.73 sqM) Est GFR (CKD-EPI)NonAf (>60 ml/min/1.73 sqM) Glucose (74-99) mg/dL Plasma Lactic Acid Jeff (0.7-2.0) mmol/L Calcium (8.4-10.2) mg/dL Total Bilirubin (0.2-1.3) mg/dL AST (14-36) U/L ALT (4-34) U/L Alkaline Phosphatase (38-126) U/L Total Protein (6.3-8.2) g/dL Albumin (3.5-5.0) g/dL Lipase (23-300) U/L Urine Color Yellow Urine Appearance Cloudy H (Clear) Urine pH 5.5 (5.0-8.0) Ur Specific Weed 1.017 (1.001-1.035) Urine Protein Trace H (Negative) Urine Glucose (UA) Negative (Negative) Urine Ketones Negative (Negative) Urine Blood Negative (Negative) Urine Nitrite Negative (Negative) Urine Bilirubin Negative (Negative) Urine Urobilinogen <2.0 (<2.0) mg/dL Ur Leukocyte Esterase Moderate H (Negative) Urine RBC 2 (0-5) /hpf Urine WBC 1 (0-5) /hpf Ur Squamous Epith Cells 8 H (0-4) /hpf Urine Mucus Few H (None) /hpf Urine HCG, Qual Not Detected (Not Detectd) - EKG Data EKG Comments: EKG demonstrates normal sinus rhythm with a ventricular rate of 79. UT interval 136. QRS 78. QTC of 428. No acute ST segment elevations or depressions Disposition Clinical Impression: Epigastric pain, Pancreatitis, Elevated liver enzymes, Cholelithiasis Disposition: ADMITTED IP TO THIS [facility] Condition: Stable Is patient prescribed a controlled substance at d/c from ED?: No Decision to Admit Reason: Admit from EC Decision Date: 12/12/20 Decision Time: 22:22
--- NOTE | 2020-12-12 22:01 | US ---
EXAMINATION TYPE: US gallbladder DATE OF EXAM: 12/12/2020 COMPARISON: NONE CLINICAL HISTORY: RUQ pain x 1 month, worse today. EXAM MEASUREMENTS: Liver Length: 14.7 cm Gallbladder Wall: 0.3 cm CBD: Not visualized; but not dilated. Right Kidney: 9.2 x 4.4 x 3.7 cm Pancreas: Limited visibility of tail. Liver: Appears to have a slightly increased echogenicity. Gallbladder: Internal echoes seen. Hyperechoic area seen in neck measuring 0.5 x 0.7 x 0.7 cm, likel y cholelithiasis occupying approximately 5% of the gallbladder lumen. Evidence for sonographic Murp hy's sign: No CBD: Not visualized. Right Kidney: No hydronephrosis or masses seen Study limitation: Limited visibility due to overlying bowel gas and patient body habitus. IMPRESSION: 1. No definite acute sonographic process. 2. Cholelithiasis noted.
[2020-12-12] MEDS ORDERED: NALOXONE 0.4 MG/ML 1 ML VIAL IV PRN (22:23)
[2020-12-12] MEDS ORDERED: ONDANSETRON 4 MG/2 ML VIAL IVP PRN (22:23)
[2020-12-12] MEDS: SODIUM CHLORIDE 0.9% 1,000 ML IV SCH (23:27)
[2020-12-13 07:40] LABS: Basophils % (A) 1 %; Eosinophils # (A) 0.2 k/uL (0-0.7); Eosinophils % (A) 4 %; HCT 38.9 % (34.0-46.0); HGB 13.1 gm/dL (11.4-16.0); Lymphocytes # (A) 1.1 k/uL (1.0-4.8); Lymphocytes % (A) 26 %; MCH 29.2 pg (25.0-35.0); MCHC 33.7 g/dL (31.0-37.0); MCV 86.8 fL (80.0-100.0); Mean Platelet Volume 9.3; Monocytes # (A) 0.3 k/uL (0-1.0); Monocytes % (A) 7 %; Neutrophils # (A) 2.6 k/uL (1.3-7.7); Neutrophils % (A) 61 %; Platelet Count 164 k/uL (150-450); RBC 4.49 m/uL (3.80-5.40); RDW 12.6 % (11.5-15.5); WBC 4.3 k/uL (3.8-10.6)
[2020-12-13 07:50] LABS: African American GFR (CKD) 86 (>60 ml/min/1.73 sqM); Anion Gap 6 mmol/L; Blood Urea Nitrogen 11 mg/dL (7-17); Calcium 9.1 mg/dL (8.4-10.2); Carbon Dioxide 21 mmol/L (22-30); Chloride 110 mmol/L (98-107); Glucose 99 mg/dL (74-99); Lipase 133 U/L (23-300); Non-African American GFR(CKD) 75 (>60 ml/min/1.73 sqM); Sodium 137 mmol/L (137-145)
[2020-12-13] MEDS: SODIUM CHLORIDE 0.9% 1,000 ML IV SCH ×2 (08:26→20:31)
--- NOTE | 2020-12-13 09:11 | P.GSHP ---
History of Present Illness H&P Date: 12/13/20 Chief Complaint: Gallstone pancreatitis 25-year-old female comes to the ER with complaints of abdominal pain. For the last 2 months she has had intermittent pain usually once per week. Episodes last typically around 15 minutes or so. Yesterday the pain began in the aftern oon/evening and was not improving. She went to urgent care and then was sent to the hospital for evaluation. Patient describes the pain as being epigastric and right upper quadrant with radiation to the back. Some nausea without vomiting. Labs showed increased liver enzymes and elevated lipase. Ultrasound showed numerous gallstones. The patient says her pain has resolved. This morning her lipase has normalized. Liver enzymes currently pending. Denies any change in the color of her skin urine or stool. No alcohol use. - Review of Systems Comment: The patient denies any acute changes in vision or hearing, no dysphagia or odynophagia, no chest pain or shortness of breath, no dysuria or hematuria, no headache, no runny nose, no rectal bleeding or melena, no unexplained weight loss Past Medical History Past Medical History: No Reported History History of Any Multi-Drug Resistant Organisms: None Reported Past Surgical History: Ear Surgery Additional Past Surgical History / Comment(s): tubes as a child Past Anesthesia/Blood Transfusion Reactions: No Reported Reaction Past Psychological History: No Psychological Hx Reported Smoking Status: Never smoker Past Alcohol Use History: Rare Past Drug Use History: None Reported Additional Drug Use History / Comment(s): . - Past Family History Father Family Medical History: No Reported History Medications and Allergies Home Medications Medication Instructions Recorded Confirmed Type medroxyPROGESTERone [Depo-Provera] 150 mg SQ Q84D 12/12/20 12/12/20 History Allergies Allergy/AdvReac Type Severity Reaction Status Date / Time No Known Allergies Allergy Verified 12/12/20 22:53 Surgical - Exam Vital Signs Temp Pulse Resp BP Pulse Ox 98.2 F 80 18 117/84 100 12/12/20 19:04 12/12/20 19:04 12/12/20 19:04 12/12/20 19:04 12/12/20 19:04 Physical exam: General: Well-developed, well-nourished HEENT: Normocephalic, sclerae nonicteric Abdomen: Mild right upper quadrant tenderness, nondistended Extremities: No edema Neuro: Alert and oriented Results - Labs 12/13/20 07:23 12/13/20 07:23 Abnormal Lab Results - Last 24 Hours (Table) 12/12/20 12/12/20 12/12/20 Range/Units 19:45 19:45 20:34 Lymphocytes # 0.8 L (1.0-4.8) k/uL Chloride (98-107) mmol/L Carbon Dioxide (22-30) mmol/L Glucose 123 H (74-99) mg/dL AST 65 H (14-36) U/L ALT 39 H (4-34) U/L Lipase 915 H (23-300) U/L Urine Appearance Cloudy H (Clear) Urine Protein Trace H (Negative) Ur Leukocyte Esterase Moderate H (Negative) Ur Squamous Epith Cells 8 H (0-4) /hpf Urine Mucus Few H (None) /hpf 12/13/20 Range/Units 07:23 Lymphocytes # (1.0-4.8) k/uL Chloride 110 H (98-107) mmol/L Carbon Dioxide 21 L (22-30) mmol/L Glucose (74-99) mg/dL AST (14-36) U/L ALT (4-34) U/L Lipase (23-300) U/L Urine Appearance (Clear) Urine Protein (Negative) Ur Leukocyte Esterase (Negative) Ur Squamous Epith Cells (0-4) /hpf Urine Mucus (None) /hpf Diabetes panel 12/12/20 12/13/20 Range/Units 19:45 07:23 Sodium 138 137 (137-145) mmol/L Potassium 3.9 4.0 (3.5-5.1) mmol/L Chloride 104 110 H (98-107) mmol/L Carbon Dioxide 24 21 L (22-30) mmol/L BUN 11 11 (7-17) mg/dL Creatinine 1.01 1.03 (0.52-1.04) mg/dL Glucose 123 H 99 (74-99) mg/dL Calcium 9.6 9.1 (8.4-10.2) mg/dL AST 65 H (14-36) U/L ALT 39 H (4-34) U/L Alkaline Phosphatase 110 (38-126) U/L Total Protein 7.7 (6.3-8.2) g/dL Albumin 4.5 (3.5-5.0) g/dL Calcium panel 12/12/20 12/13/20 Range/Units 19:45 07:23 Calcium 9.6 9.1 (8.4-10.2) mg/dL Albumin 4.5 (3.5-5.0) g/dL Pituitary panel 12/12/20 12/13/20 Range/Units 19:45 07:23 Sodium 138 137 (137-145) mmol/L Potassium 3.9 4.0 (3.5-5.1) mmol/L Chloride 104 110 H (98-107) mmol/L Carbon Dioxide 24 21 L (22-30) mmol/L BUN 11 11 (7-17) mg/dL Creatinine 1.01 1.03 (0.52-1.04) mg/dL Glucose 123 H 99 (74-99) mg/dL Calcium 9.6 9.1 (8.4-10.2) mg/dL Adrenal panel 12/12/20 12/13/20 Range/Units 19:45 07:23 Sodium 138 137 (137-145) mmol/L Potassium 3.9 4.0 (3.5-5.1) mmol/L Chloride 104 110 H (98-107) mmol/L Carbon Dioxide 24 21 L (22-30) mmol/L BUN 11 11 (7-17) mg/dL Creatinine 1.01 1.03 (0.52-1.04) mg/dL Glucose 123 H 99 (74-99) mg/dL Calcium 9.6 9.1 (8.4-10.2) mg/dL Total Bilirubin 1.1 (0.2-1.3) mg/dL AST 65 H (14-36) U/L ALT 39 H (4-34) U/L Alkaline Phosphatase 110 (38-126) U/L Total Protein 7.7 (6.3-8.2) g/dL Albumin 4.5 (3.5-5.0) g/dL Assessment and Plan (1) Gallstone pancreatitis Narrative/Plan: 25-year-old female with gallstone pancreatitis. Patient's lipase has normalized and her pain has resolved. If the patient's liver enzymes have improved Will proceed with laparoscopic, possible open cholecystectomy today. If not further workup may be required. Risks of bleeding, infection, bile leak, bile duct injury, retained common bile duct stone, trocar injury, conversion to an open procedure, hernia, anesthesia related complications were reviewed. The patient understands and wishes to proceed. Current Visit: Yes Status: Acute Code(s): K85.10 - BILIARY ACUTE PANCREATITIS WITHOUT NECROSIS OR INFECTION SNOMED Code(s): 27438304
[2020-12-13 11:41] LABS: ALT 127 U/L (4-34); AST 120 U/L (14-36); Albumin 3.6 g/dL (3.5-5.0); Albumin/Globulin Ratio 1.3; Alkaline Phosphatase 100 U/L (38-126); Globulin 2.8 g/dL; Total Bilirubin 0.4 mg/dL (0.2-1.3); Total Protein 6.4 g/dL (6.3-8.2)
--- NOTE | 2020-12-13 16:51 | P.CNPUL ---
History of Present Illness Consult date: 12/13/20 Reason for consult: dyspnea, chest pain Chief complaint: Lower chest upper abdominal pain History of present illness: 25-year-old female who presented into the emergency department from urgent care Center with acute onset of the epigastric, lower chest and upper abdominal pain patient started symptoms after eating pizza patient subsequently went to urgent care and received pain medicine and referred to emergency center, ultrasound significant for cholelithiasis, patient has been divided by surgical service and scheduled for cholecystectomy, on specific questioning it appears that there is no chest pain pain is predominantly located in epigastric area Past Medical History Past Medical History: No Reported History History of Any Multi-Drug Resistant Organisms: None Reported Past Surgical History: Ear Surgery Additional Past Surgical History / Comment(s): tubes as a child Past Anesthesia/Blood Transfusion Reactions: No Reported Reaction Past Psychological History: No Psychological Hx Reported Smoking Status: Never smoker Past Alcohol Use History: Rare Past Drug Use History: None Reported Additional Drug Use History / Comment(s): . - Past Family History Father Family Medical History: No Reported History Medications and Allergies Home Medications Medication Instructions Recorded Confirmed Type medroxyPROGESTERone [Depo-Provera] 150 mg SQ Q84D 12/12/20 12/12/20 History Allergies Allergy/AdvReac Type Severity Reaction Status Date / Time No Known Allergies Allergy Verified 12/12/20 22:53 Physical Exam Vitals: Vital Signs Temp Pulse Pulse Resp BP BP Pulse Ox 12/13/20 13:30 98 F 88 18 118/78 98 12/13/20 04:12 97.9 F 89 14 99/65 98 12/12/20 23:30 98.0 F 83 16 117/77 98 12/12/20 23:05 81 16 121/78 99 12/12/20 19:04 98.2 F 80 18 117/84 100 Intake and Output 12/13/20 12/13/20 12/13/20 06:59 14:59 22:59 Intake Total 600 Balance 600 Intake: Intake, IV Titration 600 Amount Sodium Chloride 0.9% 1, 600 000 ml @ 100 mls/hr IV . Q10H [facility]IL[facility] Rx#:[id number] Oral 0 Other: # Voids 1 - Constitutional General appearance: average body habitus, cooperative, disheveled - EENT Eyes: PERRLA Ears: bilateral: normal - Neck Neck: normal ROM Carotids: bilateral: upstroke normal Thyroid: bilateral: normal size - Respiratory Respiratory: bilateral: CTA - Cardiovascular Rhythm: regular Heart sounds: normal: S1, S2 - Gastrointestinal General gastrointestinal: normal bowel sounds - Integumentary Integumentary: normal turgor - Neurologic Neurologic: CNII-XII intact - Musculoskeletal Musculoskeletal: gait normal, generalized weakness, strength equal bilaterally - Psychiatric Psychiatric: A&O x's 3, appropriate affect, intact judgment & insight Results - Laboratory Findings CBC and BMP: 12/13/20 07:23 12/13/20 07:23 Abnormal lab findings: Abnormal Labs 12/12/20 12/12/20 12/12/20 19:45 19:45 20:34 Lymphocytes # 0.8 L Chloride Carbon Dioxide Glucose 123 H AST 65 H ALT 39 H Lipase 915 H Urine Appearance Cloudy H Urine Protein Trace H Ur Leukocyte Esterase Moderate H Ur Squamous Epith Cells 8 H Urine Mucus Few H 12/13/20 07:23 Lymphocytes # Chloride 110 H Carbon Dioxide 21 L Glucose AST 120 H ALT 127 H Lipase Urine Appearance Urine Protein Ur Leukocyte Esterase Ur Squamous Epith Cells Urine Mucus Assessment and Plan Assessment: Upper abdominal epigastric pain due to cholelithiasis Elevated liver enzymes Elevated lipase likely due to gallstone pancreatitis trending downwards Plan: Agree with plans of cholecystectomy, recommend continued do deep breathing exercise incentive spirometry postoperatively, DVT prophylaxis peptic ulcer disease prophylaxis Time with Patient: Greater than 30
--- NOTE | 2020-12-13 18:41 | MR ---
EXAMINATION TYPE: MR MRCP DATE OF EXAM: 12/13/2020 COMPARISON: None HISTORY: Acute epigastric pain, evaluate for choledocholithiasis Multiplanar multiecho imaging of the abdomen was performed without contrast. There are MRCP 3-D post processed images. FINDINGS: The liver has normal size and contour. Gallbladder appears normal. There is no evidence of a splenic mass. Stomach is intact. There is no pancreatic mass. The bile ducts are not dilated. There is no sae dence of pleural effusion or pericardial effusion. There is no adrenal mass. Kidneys have normal size and contour. There is no hydronephrosis. The pancreatic duct appears normal. The MRCP images show normal size of the pancreatic and bile ducts. I see no filling defect. There is no evidence of a stricture. IMPRESSION: Normal MRCP exam. No evidence of a common duct stone.
[2020-12-14 04:33] LABS: Basophils % (A) 1 %; Eosinophils # (A) 0.1 k/uL (0-0.7); Eosinophils % (A) 4 %; HCT 36.8 % (34.0-46.0); HGB 12.4 gm/dL (11.4-16.0); Lymphocytes # (A) 1.5 k/uL (1.0-4.8); Lymphocytes % (A) 37 %; MCH 29.7 pg (25.0-35.0); MCHC 33.7 g/dL (31.0-37.0); MCV 88.1 fL (80.0-100.0); Mean Platelet Volume 9.2; Monocytes # (A) 0.2 k/uL (0-1.0); Monocytes % (A) 6 %; Neutrophils % (A) 51 %; Platelet Count 144 k/uL (150-450); RBC 4.18 m/uL (3.80-5.40); RDW 12.6 % (11.5-15.5); WBC 3.9 k/uL (3.8-10.6)
[2020-12-14 04:51] LABS: ALT 84 U/L (4-34); AST 44 U/L (14-36); African American GFR (CKD) 88 (>60 ml/min/1.73 sqM); Albumin 3.2 g/dL (3.5-5.0); Albumin/Globulin Ratio 1.2; Alkaline Phosphatase 93 U/L (38-126); Anion Gap 5 mmol/L; Blood Urea Nitrogen 9 mg/dL (7-17); Calcium 8.6 mg/dL (8.4-10.2); Carbon Dioxide 22 mmol/L (22-30); Chloride 112 mmol/L (98-107); Globulin 2.7 g/dL; Glucose 90 mg/dL (74-99); Non-African American GFR(CKD) 77 (>60 ml/min/1.73 sqM); Potassium 4.1 mmol/L (3.5-5.1); Sodium 139 mmol/L (137-145); Total Bilirubin 0.7 mg/dL (0.2-1.3); Total Protein 5.9 g/dL (6.3-8.2)
[2020-12-14] MEDS: SODIUM CHLORIDE 0.9% 1,000 ML IV SCH ×3 (04:51→22:55)
--- NOTE | 2020-12-14 09:00 | P.PN ---
Progress Note - Text Progress Note Date: 12/14/20 Patient's MRCP yesterday was normal with no evidence of choledocholithiasis. Today's liver enzymes are improved from yesterday. ALT now 84 AST 44. Will proceed with laparoscopic cholecystectomy today. Risks of bleeding, infection, bile leak, bile duct injury, retained common bile duct stone, trocar injury, conversion to an open procedure, hernia, anesthesia related complications were reviewed. The patient understands and wishes to proceed.
[2020-12-14] MEDS ORDERED: ONDANSETRON 4 MG/2 ML VIAL IVP ONE (09:40)
[2020-12-14] MEDS ORDERED: DEXAMETHASONE SOD PHOSPHATE 4 MG/ML 1 ML VIAL IVP ONE (09:43)
[2020-12-14] MEDS ORDERED: PROPOFOL 10 MG/ML 20 ML VIAL IV ONE (09:57)
[2020-12-14] MEDS ORDERED: fentaNYL (PF) 50 MCG/ML 2 ML AMP ONE (09:57)
[2020-12-14] MEDS ORDERED: ROCURONIUM 10 MG/ML (5 ML VIAL) IV ONE (09:57)
[2020-12-14] MEDS ORDERED: LIDOCAINE 1% INJ 10MG/ML (20 ML MDV) ONE (09:57)
[2020-12-14] MEDS ORDERED: GLYCOPYRROLATE 0.2 MG/ML 2 ML VIAL ONE (09:57)
[2020-12-14] MEDS ORDERED: HYDROmorphone (PF) 1 MG/ML ONE (09:57)
[2020-12-14] MEDS ORDERED: SUCCINYLCHOLINE CHLORIDE 100 MG/5 ML SYR IV ONE (09:57)
[2020-12-14] MEDS ORDERED: NEOSTIGMINE 1 MG/ML 10 ML VIAL ONE (09:57)
[2020-12-14] MEDS ORDERED: MIDAZOLAM 2 MG/2 ML VIAL ONE (09:57)
[2020-12-14] MEDS ORDERED: IV FLUID CONTINUATION 1,000 ML IV ONE (09:59)
[2020-12-14] MEDS ORDERED: SODIUM CHLORIDE 0.9% 100 ML with ceFAZolin 2,000 MG IV ONE ×2 (09:59)
[2020-12-14] MEDS ORDERED: BUPIVACAINE (PF) 0.25% 30 ML VIAL SQ ONE ×2 (10:14)
[2020-12-14] MEDS ORDERED: LACTATED RINGERS 1,000 ML IV ONE (11:02)
[2020-12-14] MEDS ORDERED: KETOROLAC 15 MG/ML 1 ML VIAL IVP ONE (11:15)
--- NOTE | 2020-12-14 11:15 | P.OP ---
Date of Procedure: 12/14/20 Procedure(s) Performed: PREOPERATIVE DIAGNOSIS: Gallstone pancreatitis POSTOPERATIVE DIAGNOSIS: Same PROCEDURE: Laparoscopic cholecystectomy SURGEON: Don EBL: Minimal see anesthesia record ANESTHESIA: Gen. COMPLICATIONS: None OPERATIVE PROCEDURE: The patient was brought and placed on the operating room ta [facility] in the supine position. The patient was placed under general anesthesia at that time. The abdomen was prepped and draped in the usual sterile fashion. A small vertical infraumbilical incision was made. The fascia was grasped with the Marianela forceps. The fascia was retracted anteriorly. The Veress needle was advanced into the peritoneal cavity. The saline drop test was normal. Insufflation took place up to 15 mmHg. A 5 mm optical trocar was advanced and the peritoneal cavity. 2 additional 5 mm trochars were placed in the right upper quadrant under direct visualization. A 12 mm trocar was advanced into the epigastric incision site. The gallbladder was acutely inflamed with a slightly thickened gallbladder wall noted. The omentum was adherent to the gallbladder which required blunt dissection. The gallbladder was retracted superiorly and laterally. The peritoneum overlying the infundibulum was bluntly dissected. The patient's cystic duct was visualized. The junction between the cystic duct common and hepatic duct was identified. The cystic duct was then divided after placement of 3 12 mm clips on the patient's side and one on the specimen side. The cystic artery was identified and clipped as well. A small vessel was seen along the gallbladder fossa and clipped as well. The gallbladder was then removed from the liver bed using electrocautery. The gallbladder was then removed from the epigastric trocar site with an Endo Catch bag. The gallbladder fossa was irrigated with saline. There was no evidence of any bleeding or biliary drainage seen. The fascia at the 12 millimeter site was closed using a Robert-Jenny 0 Vicryl stitch. The trochars were then removed. The skin at all 4 sites was closed using a 4-0 Monocryl stitch. Skin glue was utilized on the incision sites. At the end of this procedure the sponge and needle counts were correct. DISPOSITION: Stable to the recovery room
[2020-12-14] MEDS: KETOROLAC 15 MG/ML 1 ML VIAL IVP PRN ×3 (11:20→22:56)
[2020-12-14] MEDS ORDERED: HYDROmorphone 0.5 MG/0.5 ML SYRINGE IVP ONE ×3 (11:22→11:49)
[2020-12-14] MEDS: HYDROcodone/APAP 5-325MG 1 EACH TAB PO PRN ×2 (14:40→18:59)
[2020-12-15 04:18] VITALS: BP 100/64; PULSE 98; RESP 14; TEMP 98.4
[2020-12-15] MEDS: HYDROcodone/APAP 5-325MG 1 EACH TAB PO PRN (09:03)
--- NOTE | 2020-12-15 09:30 | P.DS ---
Providers Date of admission: 12/12/20 22:23 Expected date of discharge: 12/15/20 Attending physician: Alec Ochoa Primary care physician: James Narayan - Discharge Diagnosis(es) (1) Gallstone pancreatitis Patient admitted to the hospital 3 days ago with epigastric abdominal pain. Diagnosed with gallstone pancreatitis. Liver enzymes were elevated. MRCP obtained which showed no evidence of common bile duct stone. Yesterday went for laparoscopic cholecystectomy. Doing better today. Anus well-controlled. Would like to go home. We'll discharge. Follow-up one week. Current Visit: Yes Status: Acute Patient Condition at Discharge: Stable Plan - Discharge Summary New Discharge Prescriptions: New oxyCODONE HCL [OxyIR] 5 mg PO Q6H PRN 3 Days #6 tab PRN Reason: Breakthrough Pain No Action medroxyPROGESTERone [Depo-Provera] 150 mg SQ Q84D Discharge Medication List medroxyPROGESTERone [Depo-Provera] 150 mg SQ Q84D 12/12/20 [History] oxyCODONE HCL [OxyIR] 5 mg PO Q6H PRN 3 Days #6 tab 12/14/20 [Rx] Follow up Appointment(s)/Referral(s): Alec Ochoa MD [Medical Doctor] - 1 Week James Narayan MD [Primary Care Provider] - 1-2 days
== END 2020-12-15 11:32 | disposition home or self-care (01) | DRG 417 ==
LOC: EC 18:51 → 5NMEDONC 22:23
PROVIDERS: ADMIT Surgery; ATTEND Surgery
PROC: 0FT44ZZ Resection of Gallbladder, Percutaneous Endoscopic Approach (ICD-10-PCS; principal; 2020-12-14 08:30)
DX: K80.20 Calculus of gallbladder without cholecystitis without obstruction (principal); K85.10 Biliary acute pancreatitis without necrosis or infection; Z20.822 Contact with and (suspected) exposure to COVID-19; Z79.3 Long term (current) use of hormonal contraceptives
CPT/HCPCS: 36415; 74181; 76705; 80053; 81001; 81025; 83605; 83690; 85025; 87635; 88304; 93005; 99285

== ENCOUNTER → 2021-11-04 | Outpatient (CLI) | payer OTHER ==
--- NOTE | 2021-11-04 10:10 | XR ---
EXAMINATION TYPE: XR knee complete RT DATE OF EXAM: 11/04/2021 COMPARISON: 10/23/2012 HISTORY: 26-year-old female S83.91XA strain R knee TECHNIQUE: 3 views FINDINGS: Extensor mechanism is intact. No knee joint effusion. No acute fracture, subluxation, or dislocation seen. IMPRESSION: No acute osseous abnormality seen.
== END | disposition home or self-care (01) ==
LOC: RADXRMAIN 09:35
PROVIDERS: ATTEND Emergency Medicine
DX: S83.91XA Sprain of unspecified site of right knee, initial encounter (principal); X58.XXXA Exposure to other specified factors, initial encounter

== ENCOUNTER → 2022-03-11 | Outpatient (CLI) | payer OTHER ==
[2022-03-11 14:49] LABS: HCT 41.2 % (37.2-46.3); HGB 12.8 g/dL (12.0-15.0); MCH 27.9 pg (27.0-32.0); MCHC 31.1 g/dL (32.0-37.0); Mean Platelet Volume 12.8 fL (9.5-12.2); NRBC Per 100 WBC 0 /100 WBCS (0.0-0.0); Platelet Count 197 X 10*3/uL (140-440); RBC 4.58 X 10*6/uL (4.10-5.20); RDW 12.4 % (11.5-14.5); WBC 5.13 X 10*3/uL (4.50-10.00)
[2022-03-11 15:36] LABS: ALT 18 U/L (8-44); AST 15 U/L (13-35); Albumin 4.3 g/dL (3.8-4.9); Albumin/Globulin Ratio 1.86 (1.60-3.17); Alkaline Phosphatase 90 U/L (41-126); BUN/Creat Ratio 11.95 Ratio (12.00-20.00); Blood Urea Nitrogen 11.6 mg/dL (9.0-27.0); Calcium 8.9 mg/dL (8.7-10.3); Carbon Dioxide 22.8 mmol/L (20.0-27.5); Chloride 108 mmol/L (96-109); Chol/HDL Ratio 3.61 Ratio; Globulin 2.3 g/dL (1.6-3.3); Glucose 99 mg/dL (70-110); Iron 81 ug/dL (50-170); LDL Cholesterol,Calculated 84.7 mg/dL (0.0-131.0); Non-African American GFR(CKD) 79.4 (60.0-200.0); Potassium 4.6 mmol/L (3.5-5.5); Sodium 140 mmol/L (135-145); Total Protein 6.6 g/dL (6.2-8.2); VLDL Calculation 11.46 mg/dL (5.00-40.00)
[2022-03-11 17:35] LABS: C-Peptide 2.18 ng/mL (0.81-3.85)
== END | disposition home or self-care (01) ==
LOC: LABWHC1 08:36
PROVIDERS: ATTEND Family Medicine
DX: R53.83 Other fatigue (principal)
CPT/HCPCS: 36415; 80053; 80061; 83036; 83540; 84439; 84443; 84681; 85027